=== PATIENT | male | born 1945 | race Caucasian/White ===

== ENCOUNTER 2018-05-10 15:46 | Emergency (ER) | payer OTHER ==
[~2018-05-10] VITALS: Ht 177.8 cm; Wt 96.2 kg
--- NOTE | 2018-05-10 17:27 | NUR ---
Patient discharged to home in stable conditon. Written and verbal after care instructions given. Patient verbalizes understanding of instructions.
[2018-05-10 17:28] VITALS: BP 142/77
--- NOTE | 2018-05-10 17:28 | NUR ---
Yanira schroeder in ED - 05/10/18 at 1728 by ANGELITO Patient discharged to home in stable conditon. Written and verbal after care instructions given. Patient verbalizes understanding of instructions.
== END 2018-05-10 17:29 | disposition home or self-care (01) ==
LOC: ER 15:46
DX: M25.571 Pain in right ankle and joints of right foot (principal); R22.41 Localized swelling, mass and lump, right lower limb; E78.5 Hyperlipidemia, unspecified
CPT/HCPCS: 73610; A4663